=== PATIENT | male | born 1950 | race Caucasian/White ===

== ENCOUNTER 2024-01-29 08:00 | Outpatient (AMB) | payer MEDICARE, OTHER, SELFPAY ==
--- NOTE | 2024-01-29 08:01 | A.OFFVIS_ITS ---
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 she also noticed some slowing in daily activities. He had a 3 falls in the past 2 years related to tripping He had 2 other falls- when he passed out- once when he stood up from a stationary bike, once in the bathroom . ATenelol was stopped which helped.He fractured his right shoulder 2 months ago after a fall in the [employer].He used to have dizziness while on atenelol. He also has h/o vertigo , last severe episode was in 2002 when he moves quick he feels dizzy. He denies double vision He feels tongue tied sometimes, softer voice. Mood- apathetic Sleep- jerky movements , dreams, snores , acting out yelling.He was diagnosed with sleep apnea many years ago but could not use CPAP. He is also more anxious now. He has very mild intermittent No drooling. He keeps his mouth often His handwriting is worse. Using utensils is hard , needs health showers and dressing due to pain in his right shoulder. No constipation No nausea , no hallucinations No h/o head injury. No fh/o parkinsons . No exposure to neuroleptics. H/o Gambling problem [facility] Medical History (Updated 01/29/24 @ 08:47 by Kerline Adams MD) Hypersomnia Snoring REM behavioral disorder Parkinson's disease without dyskinesia Gambling problem Senile purpura Elevated PSA Obesity Pulmonary nodule Migraine Melanoma Major depression Knee pain HTN (hypertension) Hyperlipidemia Hepatic steatosis B12 deficiency anemia Atherosclerosis of abdominal aorta Apnea Surgical History H/O left knee surgery Family History Father No problems noted. Mother No problems noted. Social History Household Members: Spouse and Children Alcohol intake: former Patient Tobacco Use Status: Never used Tobacco Use of substances other than those prescribed or required for medical reasons: No Physical Exam Vital Signs: Last Vital Signs Pulse 71 01/29/24 08:02 Resp 16 01/29/24 08:02 BP 122/70 01/29/24 08:02 Pulse Ox 97 01/29/24 08:02 Oxygen Delivery Method Room Air 01/29/24 08:02 BMI result Body Mass Index 30.8 Const General: cooperative, healthy appearing and comfortable Nutritional Appearance: overweight Orientation/consciousness: patient oriented x3 Eyes Pupils: Equal, round and reactive pupils present Neuro Other: Decreased facial expression and blink Mild hypophonia No tremors FFM and foot taps decreased R>L Cogwheel rigidity3+ Right UE 2 left Gait stooped , slow, smaller stride , decreased arm swings jesus General: patient oriented x3 and moves all extremities Cranial nerves: Yes Facial sensation intact/muscles of mastication intact, Yes Equal, round and reactive pupils present, Yes Nystagmus not present, Yes Normal facial strength present, Yes Midline tongue present and Yes Symmetric palate elevation present Cognition (Neuro): normal cognition Motor exam (neuro): 5/5 motor strength present throughout Deep tendon reflexes (DTR's): Right triceps reflex intensity grade: 1+, Left triceps reflex intensity grade: 1+, Rt Biceps (C5, C6): 1+, Left biceps reflex intensity grade: 1+, Right brachioradialis reflex intensity grade: 1+, Left brachioradialis reflex intensity grade: 1+, Right patellar reflex intensity grade: 1+ and Left patellar reflex intensity grade: 1+ Coordination: [id number] test normal Assessment & Plan Assessment & Plan (1) Parkinson's disease without dyskinesia: Comment: with orthostatic intolerance Code(s): G20.A1 - Parkinson's disease without dyskinesia, without mention of fluctuations Category: Medical (2) REM behavioral disorder: Code(s): G47.52 - REM sleep behavior disorder Category: Medical (3) Snoring: Code(s): R06.83 - Snoring Category: Medical (4) Hypersomnia: Code(s): G47.10 - Hypersomnia, unspecified Category: Medical Plan MRI brain Home sleep test to evaluate his sleep apnea. I will trial him on carbidopa/levodopa 25/100 1/2 qid - discussed side effects, interaction with protien etc. PT next visit. Orders: Orders MR head/brain wo con Today G20.A1 - Parkinson's disease without dyskinesia, without mention of fluctuations RT home sleep study Today G47.10 - Hypersomnia, unspecified, R06.83 - Snoring Medications: New lisinopril 20 mg PO DAILY 30 tabs 0RF sertraline (Zoloft) 50 mg PO DAILY 30 tabs 0RF carbidopa-levodopa 25-100 mg (Sinemet) 0.5 tabs PO QID 90 tabs 6RF nifedipine ER 60 mg PO DAILY 30 tabs 0RF Coding Level of Care Code New Pt Level 4 (19829) Complex EM visit Add On G2211 Diagnoses Parkinson's disease without dyskinesia G20.A1 REM behavioral disorder G47.52 Snoring R06.83 Hypersomnia G47.10
[2024-01-29 08:02] VITALS: BP 122/70; PULSE 71; RESP 16; O2SAT 97; BMI 30.8
== END 2024-01-29 08:58 | disposition home or self-care (01) ==
PROVIDERS: PCP Internal Medicine; Visit Provider Psychiatry & Neurology Neurology
DX: G20.A1 Parkinson's disease without dyskinesia, without mention of fluctuations (principal); G47.52 REM sleep behavior disorder; R06.83 Snoring; G47.10 Hypersomnia, unspecified
CPT/HCPCS: 99204; G2211

== ENCOUNTER → 2024-01-29 08:00 | Outpatient (BNVA) | payer MEDICARE, OTHER, SELFPAY | PROVIDERS: PCP Internal Medicine; Visit Provider Psychiatry & Neurology Neurology | DX: G20.A1 Parkinson's disease without dyskinesia, without mention of fluctuations (principal); G47.52 REM sleep behavior disorder; G47.10 Hypersomnia, unspecified; R06.83 Snoring | CPT/HCPCS: 99202 ==

== ENCOUNTER 2024-03-07 07:28 | Outpatient (REF) | payer MEDICARE, OTHER, SELFPAY ==
--- NOTE | ~2024-03-07 | MR_ITS ---
EXAMINATION: MR BRAIN WITHOUT AND WITH CONTRAST CLINICAL INFORMATION: Parkinson's disease without dyskinesia COMPARISON: None available. TECHNIQUE: Multiplanar, multisequence MRI of the brain was obtained before and after the intravenous administration of 10 mL Gadavist. FINDINGS: There is a heterogeneously enhancing mass in the right periventricular measuring 3.5 x 3.3 x 3.9 cm. This mass also demonstrates a heterogeneous echotexture diffusion and internal foci of susceptibility artifact. The mass extends medially to involve the right lateral ventricle with subependymal enhancement. There is large amount of surrounding edema within the right frontal lobe with involvement of the right insula/subinsular region, the right basal ganglia, right eye measures, and the right corpus callosum body, slightly crossing midline to the left. There is regional mass effect with near complete effacement of the right lateral ventricle. No midline shift. There is a focal expansile T2/FLAIR hyperintensity involving the subcortical white matter and cortex of the right parietal lobe without associated enhancement. Scattered and confluent periventricular and deep white matter T2/FLAIR hyperintensities, nonspecific however commonly seen with small vessel ischemic disease. No acute extra-axial fluid collections. The osseous structures are unremarkable. The pituitary gland, pineal gland and remaining midline structures are unremarkable. No orbital pathology. Mild mucosal thickening of the paranasal sinuses. The mastoid air cells are clear. MR/MR head/brain wo/w con IMPRESSION: -Heterogeneously enhancing right periventricular mass with right lateral ventricle subependymal involvement. Large perilesional edema with regional mass effect causes near complete effacement of the right lateral ventricle. -Nonenhancing focal expansile cortical and subcortical T2/FLAIR hyperintensity in the right parietal lobe without associated enhancement. -Findings are suspicious for neoplastic process, a high-grade glial neoplasm. Electronically signed by: Sanjeev Rodriguez MD 03/07/2024 11:14 AM EDT
[2024-03-07] MEDS: gadobutroL 10 ML VIAL IVPUSH (08:43)
== END 2024-03-07 07:29 | disposition home or self-care (01) ==
LOC: HO.MRI 07:28
PROVIDERS: PCP Internal Medicine; Visit Provider Psychiatry & Neurology Neurology
DX: G20.A1 Parkinson's disease without dyskinesia, without mention of fluctuations (principal)
CPT/HCPCS: 70553; A9585

== ENCOUNTER 2024-05-09 11:17 | Outpatient (AMB) | payer MEDICARE, OTHER, SELFPAY ==
--- NOTE | 2024-05-09 11:17 | MHC.OFFVIS ---
Vital Signs 05/09/24 11:18 Height 5 ft 10 in Intake Visit Reasons: Camilo Kinesia/Assess Parkinson's Intake Note: Patient presents for follow up Allergies No Known Allergies Allergy (Verified 05/09/24 11:26) HPI Comments Details: 74y/o Right Handed male comes for follow up. Mar 08 , he was putting barrels behind the shed and had a fall- could not get up , fell on his left shoulder and fractured. His was able to help him to the house with her neighbor and called 911. HIS MRI showed Glioblastoma STAGE 4 - he had craniotomy and resection- and day after the procedure he had a stroke with left sided weakness.He is currently at [facility] with Left hemiplegia History from initial visit-He is accompanied by his who helps with the history .His first noticed decrease in smile and facial expression 2 years ago and started to have a stooped posture, with small steps and off balance. she also noticed some slowing in daily activities. He had a 3 falls in the past 2 years related to tripping He had 2 other falls- when he passed out- once when he stood up from a stationary bike, once in the bathroom . ATenelol was stopped which helped.He fractured his right shoulder 2 months ago after a fall in the [place].He used to have dizziness while on atenelol. He also has h/o vertigo , last severe episode was in 2002 when he moves quick he feels dizzy. He denies double vision He feels tongue tied sometimes, softer voice. Mood- apathetic Sleep- jerky movements , dreams, snores , acting out yelling.He was diagnosed with sleep apnea many years ago but could not use CPAP. He is also more anxious now. He has very mild intermittent No drooling. He keeps his mouth often His handwriting is worse. Using utensils is hard , needs health showers and dressing due to pain in his right shoulder. No constipation No nausea , no hallucinations No h/o head injury. No fh/o parkinsons . No exposure to neuroleptics. H/o Gambling problem [facility] Medical History (Updated 05/09/24 @ 12:19 by Kerline Adams MD) Hemiplegia affecting left nondominant side Glioblastoma multiforme of frontal lobe Hypersomnia Snoring REM behavioral disorder Parkinson's disease without dyskinesia Gambling problem Senile purpura Elevated PSA Obesity Pulmonary nodule Migraine Melanoma Major depression Knee pain HTN (hypertension) Hyperlipidemia Hepatic steatosis B12 deficiency anemia Atherosclerosis of abdominal aorta Apnea Surgical History (Updated 05/09/24 @ 12:19 by Kerline Adams MD) S/P craniotomy H/O craniotomy H/O left knee surgery Family History Father No problems noted. Mother No problems noted. Social History Household Members: Spouse and Children Alcohol intake: former Patient Tobacco Use Status: Never used Tobacco Physical Exam Const General: cooperative Nutritional Appearance: overweight Orientation/consciousness: patient oriented x3 Neuro Other: left facial paresis Left hemiparesis 1/5 Tone - hypertonia on the left speech- ok Oriented X 3 General: patient oriented x3 Assessment & Plan Assessment & Plan (1) Glioblastoma multiforme of frontal lobe: Comment: Grade 4 Code(s): C71.1 - Malignant neoplasm of frontal lobe Category: Medical (2) Hemiplegia affecting left nondominant side: Code(s): G81.94 - Hemiplegia, unspecified affecting left nondominant side Category: Medical Qualifiers: Hemiplegia etiology: unspecified etiology Hemiplegia type: spastic Qualified Code(s): G81.14 - Spastic hemiplegia affecting left nondominant side (3) S/P craniotomy: Code(s): Z98.890 - Other specified postprocedural states Category: Surgical (4) Parkinson's disease without dyskinesia: Comment: with orthostatic intolerance Code(s): G20.A1 - Parkinson's disease without dyskinesia, without mention of fluctuations Category: Medical Qualifiers: Fluctuating manifestations: without fluctuating manifestations Qualified Code(s): G20.A1 - Parkinson's disease without dyskinesia, without mention of fluctuations Plan Trial patient on Gabapentin 300mg qhs for restlessness and sleep Lorazepam 0.5mg PRN for anxiety qid Continue keppra 500mg bid amantadine 50mg bid Carbidopa/levodopa 25/100 1/2 tab qid Coding Level of Care Code Est Pt Level 4 (24907) Complex EM visit Add On G2211 Diagnoses Glioblastoma multiforme of frontal lobe C71.1 Spastic hemiplegia affecting left nondominant side, unspecified etiology G81.14 Hemiplegia etiology: unspecified etiology Hemiplegia type: spastic S/P craniotomy Z98.890 Parkinson's disease without dyskinesia or fluctuating manifestations G20.A1 Fluctuating manifestations: without fluctuating manifestations
== END 2024-05-09 15:25 | disposition home or self-care (01) ==
PROVIDERS: PCP Internal Medicine; Visit Provider Psychiatry & Neurology Neurology
DX: C71.1 Malignant neoplasm of frontal lobe (principal); G81.14 Spastic hemiplegia affecting left nondominant side; Z98.890 Other specified postprocedural states; G20.A1 Parkinson's disease without dyskinesia, without mention of fluctuations
CPT/HCPCS: 99214; G2211

== ENCOUNTER → 2024-05-09 11:17 | Outpatient (BNVA) | payer MEDICARE, OTHER, SELFPAY | PROVIDERS: PCP Internal Medicine; Visit Provider Psychiatry & Neurology Neurology | DX: G20.A1 Parkinson's disease without dyskinesia, without mention of fluctuations (principal); I69.354 Hemiplegia and hemiparesis following cerebral infarction affecting left non-dominant side; C71.1 Malignant neoplasm of frontal lobe; Z98.890 Other specified postprocedural states; Z91.81 History of falling | CPT/HCPCS: 99212 ==